=== PATIENT | female | born 1940 | race Caucasian/White ===

== ENCOUNTER 2020-01-19 14:04 | Observation (INO) | payer OTHER ==
[~2020-01-19] VITALS: Ht 165.1 cm; Wt 65.9 kg
[2020-01-19 14:20] VITALS: Ht 165.1 cm; Wt 65.9 kg
[2020-01-19 14:41] LABS: BASOPHIL % 2.9 % (0-2); PLATELET COUNT 428 x10^3mcL (130-400); RED CELL DISTRIBUTION WIDTH 15.7 % (11.5-14.5)
[2020-01-19 14:59] LABS: CARBON DIOXIDE 28.3 mmol/L (21-32); CHLORIDE SERUM 104 mmol/L (98-107); CREATININE SERUM 0.8 mg/dL (0.6-1.0); GLUCOSE SERUM 123 mg/dL (74-106); POTASSIUM SERUM 4.6 mmol/L (3.5-5.1); SODIUM SERUM 140 mmol/L (136-145)
[2020-01-19 15:05] LABS: ALBUMIN 3.3 g/dL (3.4-5.0); ALKALINE PHOSPHATASE 95 U/L (46-116); ALT/SGPT 14 U/L (14-59); AST/SGOT 10 U/L (15-37); BILIRUBIN TOTAL 0.62 mg/dL (0.20-1.00); TOTAL PROTEIN, SERUM 8.2 g/dL (6.4-8.2)
[2020-01-19 16:31] LABS: UA SPECIFIC GRAVITY 1.025 (1.005-1.035); microscopic required? YES; urine erythrocyte 2+ (NEGATIVE)
[2020-01-19 21:28] VITALS: BP 155/60
[2020-01-20 07:07] LABS: BASOPHIL % 0.2 % (0-2); PLATELET COUNT 327 x10^3mcL (130-400)
[2020-01-20 07:22] LABS: CALCIUM 9.1 mg/dL (8.5-10.1); CARBON DIOXIDE 27.3 mmol/L (21-32); CHLORIDE SERUM 104 mmol/L (98-107); CREATININE SERUM 0.7 mg/dL (0.6-1.0); GLUCOSE SERUM 97 mg/dL (74-106); POTASSIUM SERUM 3.8 mmol/L (3.5-5.1); SODIUM SERUM 141 mmol/L (136-145)
[2020-01-20 08:16] LABS: RED CELL DISTRIBUTION WIDTH 15.5 % (11.5-14.5)
[2020-01-20 08:46] VITALS: BP 131/59
[2020-01-20] MEDS ORDERED: KEFLEX500 M1 PO (15:52)
[2020-01-20] MEDS ORDERED: SIMVASTATIN40 M1 PO (15:58)
[2020-01-20] MEDS ORDERED: HYDROCHLOROTHIA25 MG PO (15:58)
[2020-01-20] MEDS ORDERED: ATENOLOL25 MG PO (15:58)
[2020-01-20 16:18] VITALS: BP 131/59
== END 2020-01-20 18:01 | disposition home health service (06) ==
LOC: ED 14:04 → MU 19:12
PROVIDERS: Emergency Medicine; ADMIT Internal Medicine Pulmonary Disease; ATTEND Internal Medicine Pulmonary Disease
DX: G93.49 Other encephalopathy (principal); N39.0 Urinary tract infection, site not specified; R41.0 Disorientation, unspecified; I10 Essential (primary) hypertension; E78.5 Hyperlipidemia, unspecified; M19.90 Unspecified osteoarthritis, unspecified site
CPT/HCPCS: 97530-GP; G0378; J0696; J1644; J7060; Q0092